=== PATIENT | female | born 1935 | race Caucasian/White ===

== ENCOUNTER 2021-01-17 15:41 | Inpatient (IN) | payer MEDICARE, MEDICAID, SELFPAY ==
[2021-01-17] VITALS (40 sets, daily range): BP systolic 86–169; BP diastolic 45–125; PULSE 64–116; RESP 13–27; TEMP 36.6–36.9; O2SAT 87–100; BMI 25.7
--- NOTE | ~2021-01-17 | CT_ITS ---
EXAMINATION: CT brain wo con DATE: 01/17/2021 16:15 INDICATION: Weakness TECHNIQUE: Computed tomography (CT) of the head was performed without intravenous contrast. Sagittal and coronal reconstructions were performed. The mA was adjusted according to patient size. Iterative reconstruction technique was employed. The dose-length product was 529.67 mGy-cm. COMPARISON: None FINDINGS: No acute intracranial hemorrhage, acute infarction or abnormal extra axial fluid collection. There is mild scattered white matter hypoattenuation consistent with chronic small vessel ischemic disease. S ymmetric prominence of the sulci consistent with mild age-appropriate diffuse cerebral volume loss. V entricles are normal and symmetric. No mass/mass effect. Changes of bilateral intraocular lens replac ement. The orbits and mastoid air cells are normal. Intracranial calcified cerebral atherosclerosis i s noted. IMPRESSION: 1. No acute intracranial process. 2. Age-related changes including mild diffuse volume loss and mild scattered white matter hypoattenua tion consistent with chronic small vessel ischemic disease. Reviewed, dictated and finalized at location A. R FINISHER IMPRESSION: 1. No acute intracranial process. 2. Age-related changes including mild diffuse volume loss and mild scattered wh ite matter hypoattenuation consistent with chronic small vessel ischemic diseas e.
--- NOTE | ~2021-01-17 | XR_ITS ---
EXAMINATION: XR chest 1V portable DATE: 01/18/2021 10:45 INDICATION: Transient alteration of awareness. TECHNIQUE: A single frontal view of the chest was obtained. COMPARISON: CT abdomen and pelvis 06/16/2014 FINDINGS: There is mild atelectasis in the lower lung zones. No pleural effusion or pneumothorax. The heart size is normal. Median sternotomy wires and mediastinal surgical clips are seen, likely from p rior coronary artery bypass grafting. IMPRESSION: 1. Mild atelectasis in the lower lung zones. Reviewed, dictated and finalized at location B. NG PILOT
--- NOTE | 2021-01-17 16:01 | ECG_ITS ---
Measurements Intervals [place] Rate: 97 P: [place]: 0 QRS: 19 QRSD: 113 T: 183 QT: 351 QTc: 446 Interpretive Statements ATRIAL FIBRILLATION INCOMPLETE RIGHT BUNDLE BRANCH BLOCK ST-T WAVE ABNORMALITY IN HIGH LATERAL LEADS- CONSIDER ISCHEMIA BASELINE ARTIFACT- AVR, AVL, AVF ABNORMAL ECG Electronically Signed On 01-17-2021 17:36:47 SUPPLY TECH by Andrew Stafford D.O.
--- NOTE | 2021-01-17 16:03 | ED.WEAKNESS ---
HPI - Weakness General Chief complaint: Weakness Stated complaint: elevated BP Time Seen by Provider: 01/17/21 16:09 Source: patient and EMS Mode of arrival: EMS Limitations: no limitations History of Present Illness HPI Narrative: Patient is an 85-year-old female brought in by EMS from dialysis due to elevated blood pressure, 250/120 . Patient was finishing up her dialysis and when they checked her blood pressure it was elevated. Patient states she also had tremors which has been going on for the past week or 2. EMS also states that the patient speech was slurred, patient denies this states that she does not have her teeth and that is why she talks like this. Patient is alert and oriented x4. Denies any speech or visual disturbance, focal weakness or numbness, unsteady gait. Patient denies any chest pain, shortness of breath, abdominal pain, nausea, vomiting, diaphoresis, fever or chills. Related Data Allergies Allergy/AdvReac Type Severity Reaction Status Date / Time MARIANO Inhibitors Allergy Unknown Unknown Verified 01/17/21 16:04 Penicillins Allergy Unknown Unknown Verified 01/17/21 16:04 Sulfa (Sulfonamide Allergy Unknown Unknown Verified 01/17/21 16:04 Antibiotics) Contrast Media Allergy Unknown Unknown Uncoded 01/17/21 16:04 Review of Systems Review of Systems: All systems reviewed & are unremarkable except as noted in HPI and below Constitutional: Constitutional: Denies body ache(s), Denies chills, Denies excessive sweating, Denies fatigue, Denies fever(s), Denies headache(s), Denies lethargy, Denies malaise, Denies weakness and Denies weight loss Eyes: Eyes: Denies blurry vision, Denies change in vision and Denies loss of vision ENT: Denies dizziness, Denies ear discharge, Denies headache(s), Denies lip swelling, Denies epistaxis, Denies nasal congestion, Denies neck pain, Denies throat swelling and Denies tongue swelling Cardiovascular: Cardiovascular: Denies chest pain, Denies chest pain at rest, Denies chest pain with activity, Denies diaphoresis, Denies rapid heart rate, Denies edema, Denies irregular heart rhythm, Denies lightheadedness, Denies palpitations, Denies dyspnea and Denies dyspnea on exertion Respiratory: Respiratory: Denies chest congestion, Denies cough, Denies hemoptysis, Denies dyspnea and Denies dyspnea on exertion Gastrointestinal: Gastrointestinal: Denies abdominal pain, Denies melena, Denies hematochezia, Denies diarrhea, Denies nausea, Denies vomiting and Denies hematemesis Musculoskeletal: Musculoskeletal: Denies abnormal gait, Denies deformity, Denies joint swelling, Denies limited range of motion, Denies neck pain and Denies numbness Neurologic: Denies Abnormal speech present, Denies abnormal gait, Denies confusion, Denies dizziness, Denies headache(s), Denies focal weakness, Denies loss of vision, Denies numbness, Denies Other visual disturbances, Denies Sensory deficit (Neuro) and Denies weakness Psychiatric: Psychiatric: Denies confusion, Denies depression, Denies auditory hallucinations, Denies homicidal ideation and Denies suicidal ideation Endocrine: Endocrine: Denies cold intolerance, Denies excessive sweating, Denies fatigue, Denies heat intolerance and Denies palpitations Hematologic/Lymphatic: Hematologic/Lymphatic: Denies easy bleeding and Denies easy bruising Allergic/Immunologic: Allergic/Immunologic: Denies lip swelling, Denies throat swelling and Denies tongue swelling PMFSH Comments Past medical history: COPD, atrial fib, hypertension Family history: Heart disease Social history: Non-smoker, no EtOH, lives in an assisted living facility Exam Const: General: cooperative, healthy appearing, comfortable, no acute distress, well developed, alert and awake; No confusion Orientation/consciousness: oriented to person, oriented to place, oriented to time, patient oriented x3 and No confusion Limitations: no limitations HENMT: Head: normal to inspection, normocephalic and atraumati
[2021-01-17 16:51] LABS: Basophils Percent Auto 0.2 % (0.2-1.2); Eosinophils Absolute Auto 0.2 K/mm3 (0-0.3); Hematocrit 32.8 % (37.0-47.0); Hemoglobin 10.2 g/dL (12.0-15.0); Immature Granulocyte Absolute 0.04 K/mm3 (0.00-0.031); Immature Granulocyte Percent A 0.4 % (0-0.5); Lymphocytes Absolute Auto 0.73 K/mm3 (0.9-3.2); Lymphocytes Percent Auto 7.7 % (18.3-44.2); Mean Corpuscular HGB Conc 31.1 g/dl (32-36); Mean Corpuscular Hemoglobin 35.5 pg (26-34); Mean Corpuscular Volume 114.3 fl (80-100); Monocytes Absolute Auto 0.9 K/mm3 (0.1-0.6); Monocytes Percent Auto 9.1 % (2.6-8.5); Neutrophils Absolute Auto 7.6 K/mm3 (1.3-6.7); Neutrophils Percent Auto 80.6 % (45.5-73.1); Platelet Count Result 94 k/mm3 (150-375); Red Blood Count 2.87 M/mm3 (4.2-5.4); White Blood Count 9.4 K/mm3 (4.5-10.0)
[2021-01-17 17:02] LABS: Anion Gap 8 mmol/L (8-16); Blood Urea Nitrogen 51 mg/dL (7-17); Carbon Dioxide 34 mmol/L (22-30); Chloride 92 mmol/L (98-107); Estimated CRCL calculation 7 ml/min; Estimated Glomerular Filt Rate 8; Glucose 132 mg/dL (65-110); Potassium 5.1 mmol/L (3.4-5.0); Sodium 134 mmol/L (137-145)
[2021-01-17] MEDS: dilTIAZem HCl INJ 25 MG/5 ML VIAL 10 MG IV PUSH (18:01)
[2021-01-17] MEDS: ALBUTEROL SULFATE NEB 2.5 MG/0.5 ML INH 10 MG INHALATION (18:35)
--- NOTE | 2021-01-17 19:55 | PM.IMHP ---
H&P: HPI History of Present Illness Date/Time: 01/17/21 19:55 this is a 85-year-old female patient who is from [facility] re[facility]. The patient has end-stage renal disease and typically sees Dr. Bright at [place]. The patient was receiving dialysis today when they noted that her blood pressure was high it was stated to be 250/120. 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 Initially the ER physician felt that the patient had slurred speech. The daughter was with the patient stated this is her normal speech if she is edentulous. Patient is alert orientated x4 she is answering questions but she is very hard of hearing. She has no focal weakness or facial droop. No complaints of any chest pain or shortness breath at this time. Troponin is 0.85. Patient's EKG is read as atrial fibrillation incomplete right bundle branch block heart rate in the 90s. H&H is 10.2 and 32.8. Potassium 5.1. Sodium 134. Creatinine 5.1 and a GFR 8. The patient was given albuterol treatment for the potassium of 5.1. Patient's blood pressure was noted to be 137/95 with a repeat of 105/78 followed by 169/125. Patient's blood pressures are up and down. Patient was given Cardizem for heart rates of 103 to 116. Patient's heart rates now in the 70s and 80s. Head CT was read as no acute intracranial process. Age-related changes including mild diffuse volume loss and mild scattered white matter hypoattenuation consistent with chronic small vessel ischemic disease. Patient is being admitted to observation status on the date of service of 01/17/2021. Chief Complaint: High blood pressure and elevated troponin Review of Systems Review of Systems: All systems reviewed & are unremarkable except as noted in HPI and below Constitutional: Constitutional: Reports as per HPI and Reports no additional constitutional complaints Eyes: Eyes: Reports as per HPI and Reports no additional eye complaints ENT: Reports system reviewed and no additional complaints, except as documented and Reports Normal hearing present Cardiovascular: Cardiovascular: Reports no additional cardiovascular complaints Respiratory: Respiratory: Reports no additional respiratory complaints and Reports no additional respiratory complaints Gastrointestinal: Gastrointestinal: Reports as per HPI and Reports no additional gastrointestinal complaints Musculoskeletal: Musculoskeletal: Reports no additional musculoskeletal complaints Integumentary/Breasts: Skin/Breast: Reports system reviewed and no additional complaints, except as docu and Reports as per HPI Neurologic: Reports system reviewed and no additional complaints, except as documented, Reports as per HPI and Reports Normal hearing present Psychiatric: Psychiatric: Reports no additional psychiatric complaints and Reports as per HPI Endocrine: Endocrine: Reports no additional endocrine complaints Hematologic/Lymphatic: Hematologic/Lymphatic: Reports no additional hematologic/lymphatic complaints Allergic/Immunologic: Allergic/Immunologic: Reports no additional allergic/immunologic complaints [facility] Past Medical History Medical History (Updated 01/17/21 @ 20:27 by Cristiana Delacruz NP) Anemia of chronic disease Atrial fibrillation CAD (coronary artery disease) COPD (chronic obstructive pulmonary disease) History of kidney stones Hypothyroidism Surgical History Surgical History (Updated 01/17/21 @ 20:09 by Cristiana Delacruz NP) H/O four vessel coronary artery bypass graft H/O lithotripsy H/O: hysterectomy Family History Family History (Updated 01/17/21 @ 20:11 by Cristiana Delacruz NP) Mother Hypertension Diabetes mellitus Sibling Heart disease Sister Diabetes mellitus 1 brother and 2 sisters Hypertension 3 brothers and 2 sisters Father Hypertension Social History Social History (Updated 01/17/21 @ 20:12 by Cristiana Delacruz NP) Soci
[2021-01-17 21:19] LABS: Troponin I 0.768 ng/mL (0.000-0.034)
--- NOTE | 2021-01-17 21:59 | PC.NURSE ---
Bed alarm placed under patient.
--- NOTE | 2021-01-17 22:03 | PC.NURSE ---
DEREJE faxed to IMU. Family updated on room assignment. Pt reports she usually does dialysis 'every other day' and got 1/2 a treatment today (Monday) due to the upcoming holiday week schedule, when [facility] will be closed. Pt has access to Left upper arm. +thrill. +bruit. dressing in place without active bleeding noted. pt speech is slurred, which family reports is normal for pt.
--- NOTE | 2021-01-17 23:02 | ADMGEN ---
This patient, uLiza Chapman, was admitted to IMU Room 206-02. Patient/family oriented to hospital policies and general routines including ID bracelet, bed and alarms, visiting hours, pain management, procedures, bathroom and other care routines, personal items, smoking policy, room service/diet, and visiting hours. Information on how to activate the Rapid Response Team has been discussed. Patient/Family are encouraged to report perceived risks to care and to ask questions if they do not understand what they are told or what they should do.
[2021-01-17 23:30] LABS: Troponin I 0.701 ng/mL (0.000-0.034)
[2021-01-18] VITALS (24 sets, daily range): BP systolic 74–134; BP diastolic 35–61; PULSE 58–104; RESP 18–22; TEMP 36–36.9; O2SAT 97–100
[2021-01-18 05:05] LABS: Alanine Aminotransferase 15 U/L (4-35); Albumin Level 3.8 g/dL (3.5-5.1); Alkaline Phosphatase 65 U/L (38-126); Anion Gap 6 mmol/L (8-16); Aspartate Amino Transferase 22 U/L (14-36); Bilirubin,Total 0.7 mg/dL (0.2-1.3); Blood Urea Nitrogen 59 mg/dL (7-17); Calcium 9.7 mg/dL (8.4-10.2); Carbon Dioxide 31 mmol/L (22-30); Chloride 92 mmol/L (98-107); Estimated CRCL calculation 6 ml/min; Estimated Glomerular Filt Rate 7; Glucose 86 mg/dL (65-110); Lactate Dehydrogenase 328 U/L (313-618); Magnesium 2.2 mg/dL (1.6-2.3); Phosphorus 4.7 mg/dL (2.5-4.5); Potassium 5.9 mmol/L (3.4-5.0); Sodium 129 mmol/L (137-145)
[2021-01-18] MEDS: metOLazone 5 MG TABLET 10 MG PO (08:32)
[2021-01-18] MEDS: CLOPIDOGREL BISULFATE 75 MG TABLET PO (08:32)
[2021-01-18] MEDS: busPIRone HCL 10 MG TABLET PO (08:32)
[2021-01-18] MEDS: carvediloL 25 MG TABLET PO ×2 (08:32→18:32)
[2021-01-18] MEDS: LORATADINE 10 MG TABLET PO (08:32)
[2021-01-18] MEDS: GABAPENTIN 300 MG CAPSULE PO ×3 (08:33→18:32)
[2021-01-18] MEDS: CALCIUM ACETATE 667 MG TABLET 2001 MG PO ×3 (08:51→18:31)
--- NOTE | 2021-01-18 09:50 | PM.IMPN ---
Progress Note: A&P Assessment and Plan (1) Elevated troponin: Code(s): R77.8 - Other specified abnormalities of plasma proteins Status: Acute Assessment and Plan: Appreciate cardiology note Patient in no obvious distress or chest pain. Patient is a dialysis patient could be related to that. The patient has no complaints of any chest pain. Continue to trend troponins. Patient has no complaints at this time. She does have a history of having coronary artery disease. The patient is a DNR. EKG was read as atrial fibrillation incomplete right bundle branch block ST T-wave abnormality with high lateral leads consider ischemia. (2) COPD (chronic obstructive pulmonary disease): Code(s): J44.9 - Chronic obstructive pulmonary disease, unspecified Status: Chronic Assessment and Plan: Continue with home medications. No respiratory distress (3) Atrial fibrillation: Code(s): I48.91 - Unspecified atrial fibrillation Status: Chronic Assessment and Plan: The patient was given a dose of Cardizem in the emergency room. Her heart rate is in the 70s now. Currently well controlled (4) CAD (coronary artery disease): Code(s): I25.10 - Atherosclerotic heart disease of [place] coronary artery without angina pectoris Status: Chronic Assessment and Plan: History of 4 vessel CABG. Continue with home medications. Denies any chest pain (5) Hypothyroidism: Code(s): E03.9 - Hypothyroidism, unspecified Status: Chronic Assessment and Plan: Check thyroid level and continue with thyroid medicine. Follow-up in outpatient setting (6) Anemia of chronic disease: Code(s): D63.8 - Anemia in other chronic diseases classified elsewhere Status: Chronic Assessment and Plan: Patient has end-stage renal disease. Recheck in the a.m.. Procrit in the outpatient setting by nephrology service (7) Acute hyperkalemia: Code(s): E87.5 - Hyperkalemia Status: Acute Assessment and Plan: Potassium is 5.9 Nephrology consulted Potassium was only 5.1 and she received dialysis today. Patient was given a nebulizer treatment in the emergency room. Repeat labs in the a.m.. (8) End stage renal disease on dialysis: Code(s): N18.6 - End stage renal disease; Z99.2 - Dependence on renal dialysis Status: Acute Assessment and Plan: Continue dialysis Patient said that she sees Dr. Logan. I did consult Nephrology here. patient had dialysis today. Continue to monitor electrolytes. Subjective Date/time seen: 01/18/21 09:50 I'm fine Review of Systems Review of Systems: All systems reviewed & are unremarkable except as noted in HPI and below Constitutional: Constitutional: Reports as per HPI and Reports no additional constitutional complaints Eyes: Eyes: Reports as per HPI and Reports no additional eye complaints ENT: Reports system reviewed and no additional complaints, except as documented and Reports Normal hearing present Cardiovascular: Cardiovascular: Reports no additional cardiovascular complaints Respiratory: Respiratory: Reports no additional respiratory complaints and Reports no additional respiratory complaints Gastrointestinal: Gastrointestinal: Reports as per HPI and Reports no additional gastrointestinal complaints Musculoskeletal: Musculoskeletal: Reports no additional musculoskeletal complaints Integumentary/Breasts: Skin/Breast: Reports system reviewed and no additional complaints, except as docu and Reports as per HPI Neurologic: Reports system reviewed and no additional complaints, except as documented, Reports as per HPI and Reports Normal hearing present Psychiatric: Psychiatric: Reports no additional psychiatric complaints and Reports as per HPI Endocrine: Endocrine: Reports no additional endocrine complaints Hematologic/Lymphatic: Hematologic/Lymphatic: Reports no additional hematologic/lymphatic complaint
[2021-01-18] MEDS: oxyCODONE HCL (*CRX) 5 MG TAB IR 10 MG PO (13:03)
--- NOTE | 2021-01-18 15:34 | PM.PNNEP ---
Progress Note: A&P Assessment and Plan (1) End stage renal disease: Code(s): N18.6 - End stage renal disease Status: Chronic Assessment and Plan: HD today given hyperkalemia and only partial treatment yesterday plan HD tomorrow or day after depending on HD nursing staffing issues/holiday schedule follow electrolytes, volume status, and clearance FULL CONSULT to follow. Subjective Date/time seen: 01/18/21 15:34 Tolerating hemodialysis treatment at the time of my visit (seen on HD at 3:15PM); a bit confused(?) currently but does not appear in any acute distress; no events overnight. Exam Narrative: General: WD/WN female in NAD; hard of hearing Heart: normal S1 and S2; IRRR, no rub Lungs: clear to auscultation Abdomen: soft, nontender, nondistended, positive bowel sounds Extremities: no cyanosis or clubbing; no edema Skin: warm and dry Objective Data Vital Signs Vital Signs: Vital Signs Temp Pulse Resp BP Pulse Ox 01/18/21 15:10 36.3 C L 82 20 111/39 L 01/18/21 14:00 68 01/18/21 12:00 36.9 C 77 22 H 106/42 L 99 01/18/21 10:00 70 01/18/21 08:00 36.0 C L 66 18 110/55 L 99 01/18/21 06:00 66 01/18/21 04:00 67 18 99 01/18/21 03:26 36.0 C L 67 18 134/61 99 01/18/21 02:00 78 01/17/21 23:50 70 18 98 01/17/21 23:00 36.9 C 64 18 100/45 L 98 01/17/21 22:37 18 97 01/17/21 21:45 86 18 01/17/21 21:31 82 16 01/17/21 21:30 81 20 92 01/17/21 21:26 85 19 102/78 96 01/17/21 21:22 74 15 86/48 L 01/17/21 21:20 81 25 H 01/17/21 21:00 83 21 H 01/17/21 20:45 77 14 01/17/21 20:32 89 20 104/77 01/17/21 20:30 85 24 H 01/17/21 20:24 79 15 11/21/21 20:18 104 H 20 103/76 97 01/17/21 20:01 83 14 103/76 01/17/21 20:00 77 14 01/17/21 19:53 81 18 01/17/21 19:47 72 18 01/17/21 19:38 77 17 01/17/21 19:15 73 14 01/17/21 19:04 70 22 H 100 01/17/21 19:03 84 27 H 94/58 L 95 01/17/21 19:01 82 24 H 01/17/21 18:47 78 14 95 01/17/21 18:39 78 24 H 01/17/21 18:30 75 15 93 01/17/21 18:15 78 18 01/17/21 18:05 81 110/78 98 01/17/21 18:02 103 H 18 110/78 01/17/21 18:00 88 13 01/17/21 17:45 92 19 01/17/21 17:43 103 H 18 95/61 L 87 L 01/17/21 17:42 116 H 20 103/81 95 01/17/21 17:37 94 17 131/69 99 01/17/21 17:33 108 H 16 99 01/17/21 17:28 108 H 18 169/125 H 98 01/17/21 16:30 104 H 20 105/78 98 01/17/21 15:55 110 H 01/17/21 15:44 36.6 C 107 H 18 137/95 H 98 Intake/Output Intake/Output: Intake & Output 01/15/21 01/16/21 01/17/21 01/18/21 23:59 23:59 23:59 23:59 Intake Total 365 Balance 365 Meds/Results Medications: Active Medications Generic Name Dose Route Start Last Admin Trade Name Freq PRN Reason Stop Dose Admin Atorvastatin Calcium 40 mg 01/18/21 00:25 01/18/21 02:27 Atorvastatin 40 Mg Tablet PO Not Given HS MONICA Buspirone HCl 10 mg 01/18/21 09:00 01/18/21 08:32 Buspirone Hcl 10 Mg Tablet PO 10 mg DAILY MONICA Administration Calcium Acetate 2,001 mg 01/18/21 08:00 01/18/21 13:01 Calcium Acetate 667 Mg Tablet PO 2,001 mg TIDWM MONICA Administration Carvedilol 25 mg 01/18/21 08:00 01/18/21 08:32 Carvedilol 25 Mg Tablet PO 25 mg BIDWM MONICA Administration Clopidogrel Bisulfate 75 mg 01/18/21 09:00 01/18/21 08:32 Clopidogrel Bisulfate 75 Mg Tablet PO 75 mg DAILY MONICA Administration Fentanyl 50 mcg 01/20/21 09:00 Fentanyl (*Crx) 50 Mcg Patch TRANSDERM Q72H MONICA Gabapentin 300 mg 01/18/21 09:00 01/18/21 13:01 Gabapentin 300 Mg Capsule PO 300 mg TID MONICA Administration Acetaminophen 1,000 mg in 100 mls @ 400 mls/hr 01/17/21 19:21 Ofirmev 1,000 Mg Ivpb IVPB 01/18/21 19:20 Q6H PRN Mild Pain (1-3) or Fever Albumin Human 50 mls @ 9
[2021-01-18] MEDS: ATORVASTATIN 40 MG TABLET PO (20:33)
[2021-01-19] VITALS (30 sets, daily range): BP systolic 90–131; BP diastolic 26–58; PULSE 65–90; RESP 16–22; TEMP 35.3–36.9; O2SAT 94–100
[2021-01-19 08:47] LABS: Basophils Percent Auto 0.6 % (0.2-1.2); Eosinophils Absolute Auto 0.2 K/mm3 (0-0.3); Eosinophils Percent Auto 3.1 % (0-4.4); Hematocrit 30.3 % (37.0-47.0); Hemoglobin 9.5 g/dL (12.0-15.0); Immature Granulocyte Absolute 0.03 K/mm3 (0.00-0.031); Immature Granulocyte Percent A 0.4 % (0-0.5); Lymphocytes Absolute Auto 0.89 K/mm3 (0.9-3.2); Lymphocytes Percent Auto 12.7 % (18.3-44.2); Mean Corpuscular HGB Conc 31.4 g/dl (32-36); Mean Corpuscular Hemoglobin 36.5 pg (26-34); Mean Corpuscular Volume 116.5 fl (80-100); Mean Platelet Volume 10.9 fl (7.4-10.4); Monocytes Absolute Auto 0.8 K/mm3 (0.1-0.6); Monocytes Percent Auto 11.4 % (2.6-8.5); Neutrophils Percent Auto 71.8 % (45.5-73.1); Platelet Count Result 91 k/mm3 (150-375)
[2021-01-19 09:18] LABS: Albumin Level 3.9 g/dL (3.5-5.1); Anion Gap 9 mmol/L (8-16); Blood Urea Nitrogen 36 mg/dL (7-17); Calcium 10.6 mg/dL (8.4-10.2); Carbon Dioxide 27 mmol/L (22-30); Chloride 96 mmol/L (98-107); Estimated CRCL calculation 8 ml/min; Estimated Glomerular Filt Rate 10; Glucose 94 mg/dL (65-110); Phosphorus 4.1 mg/dL (2.5-4.5); Sodium 132 mmol/L (137-145)
[2021-01-19] MEDS: CALCIUM ACETATE 667 MG TABLET 2001 MG PO ×3 (09:51→18:55)
[2021-01-19] MEDS: LOSARTAN POTASSIUM 25 MG TABLET PO (09:51)
[2021-01-19] MEDS: GABAPENTIN 300 MG CAPSULE PO ×3 (09:51→18:55)
[2021-01-19] MEDS: LORATADINE 10 MG TABLET PO (09:52)
[2021-01-19] MEDS: carvediloL 25 MG TABLET PO ×2 (09:52→18:55)
[2021-01-19] MEDS: metOLazone 5 MG TABLET 10 MG PO (09:52)
[2021-01-19] MEDS: busPIRone HCL 10 MG TABLET PO (09:52)
[2021-01-19] MEDS: CLOPIDOGREL BISULFATE 75 MG TABLET PO (09:52)
[2021-01-19] MEDS: HEPARIN SODIUM 5,000 UNITS/ML VIAL 5000 UNITS SUB-Q ×2 (09:53→20:28)
--- NOTE | 2021-01-19 10:16 | ECHO_ITS ---
Patient Info Name: Luiza Chapman Age: 85 years : 1935 Gender: Female Ht: 64 in Wt: 149 lbs BSA: 1.76 m2 HR: 73 bpm BP: 121 / 45 mmHg Heart Rhythm: Atrial Fibrillation Technical Quality: Good Exam Date: 01/19/2021 1:25 PM Exam Location: [facility] Patient Status: Inpatient Admit Date: 01/18/2021 Staff Ordering Physician: Onel Day MD [employer] Manager: Ariana Webber RDCS Attending Provider: Ivanna Pearson PA-C Referring Physician: Barb YATES; Exam Type: CA echo doppler color flow Study Info Indications - ELEVATED TROPONIN - AFIB Complete two-dimensional, color flow and Doppler transthoracic echocardiogram is performed. Summary 1. Complete two-dimensional, color flow and Doppler transthoracic echocardiogram is performed. 2. Right ventricular systolic function is mild to moderately reduced. 3. Left ventricular chamber dimension is normal. 4. Left ventricular systolic function is normal, estimated at 65-70%. 5. There is moderately increased left ventricular wall thickness. 6. Left ventricular septal wall motion is abnormal with septal motion related to bundle branch block. 7. There is moderate to severe tricuspid valve regurgitation. 8. Moderate pulmonary hypertension, estimated pulmonary arterial systolic pressure is 47 mmHg. Left Ventricle Left ventricular chamber dimension is normal. Left ventricular systolic function is normal, estimated at 65-70%. There is moderately increased left ventricular wall thickness. Left ventricular septal wall motion is abnormal with septal motion related to bundle branch block. The left ventricular diastolic function is indeterminate. Right Ventricle Right ventricular systolic function is mild to moderately reduced. Right ventricular chamber dimension is mildly enlarged. Left Atria Left atrial chamber dimension is mildly enlarged. Right Atria Right atrial chamber dimension is mildly enlarged. Aortic Valve The aortic valve is trileaflet. There is no aortic valve stenosis. There is mild aortic valve regurgitation. There is mild aortic valve calcification. Pulmonic Valve The pulmonic valve is not well visualized. There is trace pulmonic regurgitation. Mitral Valve The mitral valve has thickened leaflets. There is mild mitral valve regurgitation. The mitral valve annulus is mildly calcified. Tricuspid Valve The tricuspid valve leaflets are normal. There is moderate to severe tricuspid valve regurgitation. Moderate pulmonary hypertension, estimated pulmonary arterial systolic pressure is 47 mmHg. Pericardium/Pleural The pericardium appears normal. There is no pericardial effusion. Inferior Vena Cava Normal inferior vena cava with >50% collapse upon inspiration consistent with normal right atrial pressure, 5 mmHg. Aorta The aortic root size at the sinus of Valsalva is normal. There is moderate aortic atherosclerosis. Left Ventricular Outflow Tract Name Value Normal LVOT 2D LVOT Diameter 1.9 cm LVOT Doppler LVOT Peak Gradient 5 mmHg LVOT Mean Gradient 3 mmHg
--- NOTE | 2021-01-19 10:25 | PM.CNNEP ---
Assessment and Plan Assessment and plan (1) End stage renal disease: Code(s): N18.6 - End stage renal disease Status: Chronic Assessment and Plan: HD yesterday (but treatment aborted an hour early due to needle dislodgement) plan HD again today follow electrolytes, volume status, and clearance (2) Acute hyperkalemia: Code(s): E87.5 - Hyperkalemia Status: Acute Assessment and Plan: corrected with dialysis yesterday apparently, she has missed some dialysis treatments the week before due to issues with transportation from her nursing facility follow repeat levels (3) Hypertension: Code(s): I10 - Essential (primary) hypertension Status: Chronic Assessment and Plan: apparently quite elevated prior to admission doing better at this time follow trend of hemodynamics (4) Elevated troponin: Code(s): R77.8 - Other specified abnormalities of plasma proteins Status: Acute Assessment and Plan: as noted on admission no complaints of chest pain voiced probably secondary to ESRD status (5) Atrial fibrillation: Code(s): I48.91 - Unspecified atrial fibrillation Status: Chronic Assessment and Plan: continue rate control strategy need anticoagulation? (6) Anemia of chronic disease: Code(s): D63.8 - Anemia in other chronic diseases classified elsewhere Status: Chronic Assessment and Plan: reasonable control at this time Epogen with HD follow trend of H/H Will continue to follow. History of Present Illness Reason for Consult Consult date: 01/19/21 Reason for consult: end stage renal disease Chief Complaint Chief complaint: Hyperkalemia History of Present Illness Narrative: The patient is an 85-year-old female with a past medical history as outlined below who presented to [facility] Emergency room from her dialysis center due to issues related to severe hypertension and reportedly altered mental status. The patient was receiving dialysis yesterday when the dialysis nurse nose nurses noted that her blood pressure was reportedly in the 250 systolic range. Along with the elevated blood pressure readings, her mentation seemed to be somewhat off than her baseline for all these reasons, her dialysis treatment was ended early and she was sent to [facility] Emergency room for further evaluation. Workup and evaluation emergency room demonstrated the patient to be hemodynamically stable and actually her blood pressure was significantly improved by the time of her arrival. There was some concern for possible CVA as the patient had slurred speech but the patient's daughter informed the ER staff that her speech pattern is more reflective of the fact that she does not have teeth. She was alert and oriented x4 and able to answer questions appropriately but she is significantly hard of hearing. No other focal deficits were noted and she had no other complaints with regard to chest pain shortness of breath nausea vomiting or diarrhea. Routine blood test demonstrated labs consistent with a known history of end-stage renal disease with a mildly elevated potassium of 5.1 and her CBC was unremarkable with a stable H&H. The patient's blood pressure did fluctuate while she was in the ER as did her heart rate assess the taping the use of medications to control these issues. A CT scan of her head demonstrated no acute intracranial process but given the constellation of symptoms that led to her presentation as well as her complex medical history, it was decided to admit the patient for further evaluation and therapy. Since her admission, she received dialysis yesterday more so because of her critical electrolyte abnormalities (specifically, her hyperkalemia) as well as the fact that she only received a partial dialysis treatment on the day of admission. Renal consultation was requested due to her end-stage allan
[2021-01-19] MEDS: ACETAMINOPHEN 325 MG TABLET 650 MG PO ×2 (11:05→18:56)
[2021-01-19 11:37] LABS: Iron 67 ug/dL (37-170)
--- NOTE | 2021-01-19 11:44 | PM.CNCAR ---
Assessment and Plan Assessment and plan (1) Elevated troponin: Code(s): R77.8 - Other specified abnormalities of plasma proteins Status: Acute Assessment and Plan: Indeterminate troponin elevation fairly flat with slight downward trend setting of reported hypertensive urgency systolic up to BP 250 mm Hg during hemodialysis resulting in supply demand mismatch in the setting of end-stage renal disease hemodialysis, atrial fibrillation, underlying CAD. No symptoms suggestive acute coronary syndrome. Troponin elevation most likely type 2 infarct and not related to plaque rupture. Given patient's advanced age high risk plan for conservative medical management particular patient is not interested in pursuing invasive testing such as angiography. 2D echocardiogram to assess LV function, wall motion abnormality, pulmonary pressures and valve pathology. Further recommendation to follow after review of echocardiogram and patient's clinical response to therapy. (2) Atrial fibrillation: Code(s): I48.91 - Unspecified atrial fibrillation Status: Chronic Assessment and Plan: Patient reports known chronic history of atrial fibrillation. She is not on systemic anticoagulation due to history of frequent falls, reported bleeding. She remains on clopidogrel. Heart rate reasonably controlled at this time, continue carvedilol 25 mg twice daily. Patient elevated risk for embolic stroke as she is not on systemic anticoagulation with multiple risk factors CHADS2 Vasc score at least 5. (3) CAD (coronary artery disease): Code(s): I25.10 - Atherosclerotic heart disease of [place] coronary artery without angina pectoris Status: Chronic Assessment and Plan: Prior history of bypass followed by Dr. Logan [facility] as an outpatient. Please request prior records for review. Continue clopidogrel, statin therapy. (4) Hypertensive urgency: Code(s): I16.0 - Hypertensive urgency Status: Acute Assessment and Plan: BP improved, somewhat labile and relatively hypotensive over the past 24 hours. Caution to avoid symptomatic hypotension. Patient is high fall risk. Hold losartan for now. (5) COPD (chronic obstructive pulmonary disease): Code(s): J44.9 - Chronic obstructive pulmonary disease, unspecified Status: Chronic Assessment and Plan: Continue oxygen supplementation, bronchodilator therapy as clinically appropriate. Defer to primary service in this regard. (6) Anemia of chronic disease: Code(s): D63.8 - Anemia in other chronic diseases classified elsewhere Status: Chronic Assessment and Plan: Stable chronic anemia and thrombocytopenia. Monitor very closely on clopidogrel. Increased risk of bleeding. (7) Acute hyperkalemia: Code(s): E87.5 - Hyperkalemia Status: Acute Assessment and Plan: Resolved. Defer to primary service and Nephrology. (8) End stage renal disease on dialysis: Code(s): N18.6 - End stage renal disease; Z99.2 - Dependence on renal dialysis Status: Acute Assessment and Plan: Hemodialysis per Nephrology. She remains on metolazone 10 mg daily although this may need to be held if hypotension persists. History of Present Illness History of Present Illness Consult date/time: Date of service: 01/19/21 11:44 Cardiology consultation at the request of Ivanna Pearson PA-C for opinion regarding elevated troponin. Requesting physician: Ivanna Pearson PA-C Consult reason: Other (elevated troponin) Reason For Visit: Hyperkalemia Narrative: Patient is a pleasant 85-year-old female who has a resident of [facility] with past medical history significant for coronary disease prior bypass surgery remotely followed by Dr. Logan with [facility] vascular, end-stage renal disease on hemodialysis, hypertension, dyslipidemia, chronic atrial fibrillation not on anticoagulation secondary to fall
[2021-01-19 11:48] LABS: Percent Iron Saturation 32 % (20-50)
[2021-01-19 12:26] LABS: Folic Acid 7.4 ng/mL (2.76->20)
--- NOTE | 2021-01-19 14:58 | PCPTNOTE ---
Attempted to see patient for PT evaluation, unable to be seen going to dialysis.
--- NOTE | 2021-01-19 15:22 | PM.IMPN ---
Progress Note: A&P Assessment and Plan (1) Hypertensive urgency: Code(s): I16.0 - Hypertensive urgency Status: Acute Assessment and Plan: The patient is an 85-year-old woman who was at [facility], with a history of end-stage renal disease on dialysis, who presents emergency room with uncontrolled blood pressure while at dialysis. The patient states sometimes her blood pressure becomes out of control while doing dialysis. Prior to arrival was as high as 250/120 and she was brought to the emergency room for further evaluation and workup. Initial vitals showed elevated blood pressure 137/95, tachycardic heart rate 107 beats per minute, normal oxygenation on 2 L via nasal cannula which is her baseline, afebrile. Labs on arrival showed normal white blood cell count, macrocytic anemia with a hemoglobin at 10.2, hematocrit 32%. Slight hyponatremia at 134, hyperkalemia at 5.1, elevated creatinine at 5.1, BUN 51 but she is on dialysis. Troponins were elevated at 0.85, 0.768, and 0.701. TSH normal. Patient was admitted into the hospital for further monitoring of her blood pressure, nephrology consult for dialysis, and cardiology consultation for troponin and blood pressure control. While here the patient's blood pressure seems to be running normal-slightly hypotensive. I have not seen any more hypertensive episodes during her admission. She otherwise reports feeling well. Cardiology recommends holding losartan for now given low blood pressures. Nephrology evaluated the patient and ordered for dialysis to be given 01/18/2021 since she only had partial treatment prior to arrival the day before. She also is going to have dialysis again this evening. Continue monitoring renal function panel daily. Echocardiogram and pending at this time Continue monitoring blood pressure while hospitalized and during dialysis. Appreciate Nephrology and cardiology's input. (2) Elevated troponin: Code(s): R77.8 - Other specified abnormalities of plasma proteins Status: Acute Assessment and Plan: Cardiology evaluated the patient who believes that her elevated troponins are secondary to a tight to infarct which could be in the setting of hypertensive urgency systolic up to BP 250 mm Hg during hemodialysis resulting in supply demand mismatch in the setting of end-stage renal disease hemodialysis, atrial fibrillation, underlying CAD. Cardiology discussed with the patient who does not want further invasive testing done such as a cardiac catheterization (3) End stage renal disease on dialysis: Code(s): N18.6 - End stage renal disease; Z99.2 - Dependence on renal dialysis Status: Acute Assessment and Plan: Continue dialysis. I did consult Nephrology for their input. Patient had dialysis yesterday and again today. Continue to monitor electrolytes. (4) COPD (chronic obstructive pulmonary disease): Code(s): J44.9 - Chronic obstructive pulmonary disease, unspecified Status: Chronic Assessment and Plan: Continue with home medications. No respiratory distress (5) Atrial fibrillation: Code(s): I48.91 - Unspecified atrial fibrillation Status: Chronic Assessment and Plan: The patient was given a dose of Cardizem in the emergency room. Patient is not on any anticoagulation due to frequent falls and bleeding risk. Patient is on clopidogrel given CABG surgery in past Currently well controlled (6) CAD (coronary artery disease): Code(s): I25.10 - Atherosclerotic heart disease of [place] coronary artery without angina pectoris Status: Chronic Assessment and Plan: History of 4 vessel CABG. Continue with home medications. D
[2021-01-19] MEDS: ATORVASTATIN 40 MG TABLET PO (20:28)
[2021-01-20] VITALS (10 sets, daily range): BP systolic 122–130; BP diastolic 44–70; PULSE 65–78; RESP 12–18; TEMP 36.2–36.6; O2SAT 95–100
[2021-01-20 05:33] LABS: Hematocrit 26.8 % (37.0-47.0); Hemoglobin 8.4 g/dL (12.0-15.0); Mean Corpuscular HGB Conc 31.3 g/dl (32-36); Mean Corpuscular Hemoglobin 36.7 pg (26-34); Mean Platelet Volume 10.4 fl (7.4-10.4); Platelet Count Result 70 k/mm3 (150-375); Red Blood Count 2.29 M/mm3 (4.2-5.4); Red Cell Distribution Width 13.8 % (11.5-14.5); White Blood Count 5.5 K/mm3 (4.5-10.0)
[2021-01-20 06:02] LABS: Albumin Level 3.2 g/dL (3.5-5.1); Anion Gap 4 mmol/L (8-16); Blood Urea Nitrogen 17 mg/dL (7-17); Calcium 9.7 mg/dL (8.4-10.2); Carbon Dioxide 32 mmol/L (22-30); Chloride 100 mmol/L (98-107); Estimated CRCL calculation 12 ml/min; Estimated Glomerular Filt Rate 16; Glucose 87 mg/dL (65-110); Phosphorus 2.8 mg/dL (2.5-4.5); Sodium 136 mmol/L (137-145)
[2021-01-20] MEDS: CLOPIDOGREL BISULFATE 75 MG TABLET PO (08:56)
[2021-01-20] MEDS: GABAPENTIN 300 MG CAPSULE PO ×2 (08:56→12:41)
[2021-01-20] MEDS: busPIRone HCL 10 MG TABLET PO (08:56)
[2021-01-20] MEDS: CALCIUM ACETATE 667 MG TABLET 2001 MG PO ×2 (08:56→12:41)
[2021-01-20] MEDS: metOLazone 5 MG TABLET 10 MG PO (08:56)
[2021-01-20] MEDS: LORATADINE 10 MG TABLET PO (08:56)
[2021-01-20] MEDS: carvediloL 25 MG TABLET PO (08:56)
[2021-01-20] MEDS: HEPARIN SODIUM 5,000 UNITS/ML VIAL 5000 UNITS SUB-Q (08:57)
[2021-01-20] MEDS: SENNA/DOCUSATE SODIUM TABLET 1 TAB PO (08:57)
[2021-01-20] MEDS: CYANOCOBALAMIN INJ 1,000 MCG/ML VIAL 1000 MCG IM (09:03)
[2021-01-20] MEDS: fentaNYL (*CRX) 50 MCG PATCH TRANSDERM (09:14)
--- NOTE | 2021-01-20 10:03 | PM.PNNEP ---
Progress Note: A&P Assessment and Plan (1) End stage renal disease: Code(s): N18.6 - End stage renal disease Status: Chronic Assessment and Plan: HD yesterday and plan next treatment on Monday follow electrolytes, volume status, and clearance (2) Acute hyperkalemia: Code(s): E87.5 - Hyperkalemia Status: Acute Assessment and Plan: corrected with dialysis apparently, she has missed some dialysis treatments the week before due to issues with transportation from her nursing facility follow repeat levels (3) Hypertension: Code(s): I10 - Essential (primary) hypertension Status: Chronic Assessment and Plan: apparently quite elevated prior to admission doing better at this time follow trend of hemodynamics (4) Elevated troponin: Code(s): R77.8 - Other specified abnormalities of plasma proteins Status: Acute Assessment and Plan: as noted on admission no complaints of chest pain voiced probably secondary to ESRD status (5) Atrial fibrillation: Code(s): I48.91 - Unspecified atrial fibrillation Status: Chronic Assessment and Plan: continue rate control strategy need anticoagulation? (6) Anemia of chronic disease: Code(s): D63.8 - Anemia in other chronic diseases classified elsewhere Status: Chronic Assessment and Plan: reasonable control at this time Epogen with HD follow trend of H/H Will continue to follow. Subjective Date/time seen: 01/20/21 10:03 Tolerated dialysis yesterday without any issue or problems; mentation and blood pressure seem relatively stable at this time; no issues/events overnight or earlier this morning. Exam Narrative: General: WD/WN female in NAD Heart: normal S1 and S2; no rub Lungs: clear to auscultation Abdomen: soft, nontender, nondistended, positive bowel sounds Extremities: no cyanosis or clubbing; no edema Skin: warm and dry Objective Data Vital Signs Vital Signs: Vital Signs Temp Pulse Resp BP Pulse Ox 01/20/21 08:56 73 01/20/21 08:00 36.6 C 73 18 130/44 L 100 01/20/21 06:00 78 01/20/21 04:00 36.2 C L 75 16 122/49 L 98 01/20/21 02:00 65 01/20/21 00:00 69 18 97 01/19/21 23:04 36.4 C L 65 18 131/49 L 97 01/19/21 22:00 74 01/19/21 20:00 36.4 C L 72 20 129/49 L 99 01/19/21 18:58 36.9 C 90 16 119/58 L 100 01/19/21 18:55 90 01/19/21 18:30 36.2 C L 88 16 106/38 L 01/19/21 18:00 79 01/19/21 17:45 79 113/26 L 01/19/21 17:30 69 103/30 L 01/19/21 17:15 82 101/38 L 01/19/21 17:00 71 112/31 L 01/19/21 16:45 83 111/37 L 01/19/21 16:30 71 90/47 L 01/19/21 16:15 73 119/40 L 01/19/21 16:00 74 98/49 L 98 01/19/21 15:45 72 104/26 L 01/19/21 15:30 75 102/45 L 01/19/21 15:18 76 102/47 L 01/19/21 15:05 36.6 C 66 16 92/38 L 01/19/21 14:00 69 01/19/21 12:32 36.7 C 71 22 H 103/44 L 100 01/19/21 12:00 72 100 Intake/Output Intake/Output: Intake & Output 01/17/21 01/18/21 01/19/21 01/20/21 23:59 23:59 23:59 23:59 Intake Total 945 1280 240 Output Total 289 0 0 Balance 656 1280 240 Meds/Results Medications: Active Medications Generic Name Dose Route Start Last Admin Trade Name Freq PRN Reason Stop Dose Admin Acetaminophen 650 mg 01/19/21 10:28 01/19/21 18:56 Acetaminophen 325 Mg Tablet PO 650 mg Q4H PRN Administration Headache, pain 1-3, fever Atorvastatin Calcium 40 mg 01/18/21 00:25 01/19/21 20:28 Atorvastatin 40 Mg Tablet PO 40 mg HS MONICA Administration Buspirone HCl 10 mg 01/18/21 09:00 01/20/21 08:56 Buspirone Hcl 10 Mg Tablet PO 10 mg DAILY MONICA Administration Calcium Acetate 2,001 mg 01/18/21 08:00 01/20/21 08:56 Calcium Acetate 667 Mg Tablet PO 2,001 mg TIDWM MONICA Administration Carvedilol 25 mg 01/18/21 08:0
--- NOTE | 2021-01-20 13:43 | PM.PNCARD ---
Progress Note: A&P Assessment and Plan (1) Elevated troponin: Code(s): R77.8 - Other specified abnormalities of plasma proteins Status: Acute Assessment and Plan: Indeterminate troponin elevation fairly flat with slight downward trend setting of reported hypertensive urgency systolic up to BP 250 mm Hg during hemodialysis resulting in supply demand mismatch in the setting of end-stage renal disease hemodialysis, atrial fibrillation, underlying CAD. No symptoms suggestive acute coronary syndrome. Troponin elevation most likely type 2 infarct and not related to plaque rupture. No further invasive workup planned at this time. Follow up with her certified residential medication aide Dr. Logan as an outpatient within the next 2 weeks for further evaluation of tricuspid regurgitation noted on echocardiogram. LV systolic function preserved moderate LVH. Disposition per hospitalist service. Stable from cardiac perspective. 2D echocardiogram personally reviewed: Summary 1. Complete two-dimensional, color flow and Doppler transthoracic echocardiogram is performed. 2. Right ventricular systolic function is mild to moderately reduced. 3. Left ventricular chamber dimension is normal. 4. Left ventricular systolic function is normal, estimated at 65-70%. 5. There is moderately increased left ventricular wall thickness. 6. Left ventricular septal wall motion is abnormal with septal motion related to bundle branch block. 7. There is moderate to severe tricuspid valve regurgitation. 8. Moderate pulmonary hypertension, estimated pulmonary arterial systolic pressure is 47 mmHg. (2) Atrial fibrillation: Code(s): I48.91 - Unspecified atrial fibrillation Status: Chronic Assessment and Plan: Heart rate reasonably controlled. Patient reports known chronic history of atrial fibrillation. She is not on systemic anticoagulation due to history of frequent falls, reported bleeding. She remains on clopidogrel. Heart rate reasonably controlled at this time, continue carvedilol 25 mg twice daily. Patient elevated risk for embolic stroke as she is not on systemic anticoagulation with multiple risk factors CHADS2 Vasc score at least 5. (3) CAD (coronary artery disease): Code(s): I25.10 - Atherosclerotic heart disease of [place] coronary artery without angina pectoris Status: Chronic Assessment and Plan: Prior history of bypass followed by Dr. Logan [facility] as an outpatient. Please request prior records for review. Continue clopidogrel, statin therapy. (4) Hypertensive urgency: Code(s): I16.0 - Hypertensive urgency Status: Acute Assessment and Plan: BP improved, somewhat labile and relatively hypotensive over the past 24 hours. Caution to avoid symptomatic hypotension. Patient is high fall risk. Defer resumption of losartan to Nephrology and primary service. (5) COPD (chronic obstructive pulmonary disease): Code(s): J44.9 - Chronic obstructive pulmonary disease, unspecified Status: Chronic Assessment and Plan: Continue oxygen supplementation, bronchodilator therapy as clinically appropriate. Defer to primary service in this regard. (6) Anemia of chronic disease: Code(s): D63.8 - Anemia in other chronic diseases classified elsewhere Status: Chronic Assessment and Plan: Stable chronic anemia and thrombocytopenia. Monitor very closely on clopidogrel. Increased risk of bleeding. (7) Acute hyperkalemia: Code(s): E87.5 - Hyperkalemia Status: Acute Assessment and Plan: Resolved. Defer to primary service and Nephrology. (8) End stage renal disease on dialysis: Code(s): N18.6 - End stage renal disease; Z99.2 - Dependence on renal dialysis Status: Acute Assessment and Plan: Hemodialysis per Nephrology. Subjective Date/time seen: Date of service: 01/20/21 13:43 Follow-up for chronic atrial fibrillation, CAD, elevated troponin,
[2021-01-20] MEDS: IPRATROPIUM BR 0.02% INH SOLN 0.5 MG/2.5 ML VIAL INHALATION (14:08)
[2021-01-20] MEDS: ALBUTEROL SULFATE NEB 2.5 MG/0.5 ML INH INHALATION (14:08)
--- NOTE | 2021-01-20 15:25 | PM.DS ---
DS: Admitting Diagnosis Discharge Date 01/20/21 Admitting Diagnosis Elevated BP DS: Discharge Diagnosis Discharge Diagnosis (1) Hypertensive urgency: Code(s): I16.0 - Hypertensive urgency Status: Acute Assessment and Plan: The patient is an 85-year-old woman who was at [facility], with a history of end-stage renal disease on dialysis, who presents emergency room with uncontrolled blood pressure while at dialysis. The patient states sometimes her blood pressure becomes out of control while doing dialysis. Prior to arrival was as high as 250/120 and she was brought to the emergency room for further evaluation and workup. Initial vitals showed elevated blood pressure 137/95, tachycardic heart rate 107 beats per minute, normal oxygenation on 2 L via nasal cannula which is her baseline, afebrile. Labs on arrival showed normal white blood cell count, macrocytic anemia with a hemoglobin at 10.2, hematocrit 32%. Slight hyponatremia at 134, hyperkalemia at 5.1, elevated creatinine at 5.1, BUN 51 but she is on dialysis. Troponins were elevated at 0.85, 0.768, and 0.701. TSH normal. Patient was admitted into the hospital for further monitoring of her blood pressure, nephrology consult for dialysis, and cardiology consultation for troponin and blood pressure control. While here the patient's blood pressure seems to be running normal-slightly hypotensive. I have not seen any more hypertensive episodes during her admission. She otherwise reports feeling well. Patients blood pressures are improved today 130/44. Nephrology evaluated the patient and she had dialysis 01/18, 01/19. She will return to her normal scheduled Monday as an outpatient. Renal function and electrolytes are improved from dialysis. Echocardiogram showed Right ventricular systolic function is mild to moderately reduced. Left ventricular chamber dimension is normal. Left ventricular systolic function is normal, estimated at 65-70%. There is moderately increased left ventricular wall thickness. Moderate pulmonary HTN and Moderate to Severe Tricuspid Valve Regurg that will need follow up with PCP. Patient is feeling well at this time without any concerns. She is stable for discharge back to her living facility and follow up with PCP in 1 week. She understands and agrees with the plan. All questions answered. (2) Elevated troponin: Code(s): R77.8 - Other specified abnormalities of plasma proteins Status: Acute Assessment and Plan: Cardiology evaluated the patient who believes that her elevated troponins are secondary to a tight to infarct which could be in the setting of hypertensive urgency systolic up to BP 250 mm Hg during hemodialysis resulting in supply demand mismatch in the setting of end-stage renal disease hemodialysis, atrial fibrillation, underlying CAD. Cardiology discussed with the patient who does not want further invasive testing done such as a cardiac catheterization (3) End stage renal disease on dialysis: Code(s): N18.6 - End stage renal disease; Z99.2 - Dependence on renal dialysis Status: Acute Assessment and Plan: Continue dialysis. (4) COPD (chronic obstructive pulmonary disease): Code(s): J44.9 - Chronic obstructive pulmonary disease, unspecified Status: Chronic Assessment and Plan: Continue with home medications. She had slight SOB when I evaluated her and she stated she was sitting up to high in bed, once we lowered her bed down she felt better. Also gave her a breathing treatment and she was much better and feels comfortable with discharge at this time. Otherwise lungs were clear without any wheezing. (5) Atrial fibrillation: Code(s): I48.91 - Unspecified atrial fibrillation
== END 2021-01-20 16:30 | DRG 280 ==
LOC: ANHED 17:53 → ANHIMU 21:57
PROVIDERS: Internal Medicine Nephrology; Nurse Practitioner; Admitting Provider Family Medicine; Emergency Provider Emergency Medicine; PCP Internal Medicine; Visit Provider Physician Assistant
DX: I16.0 Hypertensive urgency (principal); N18.6 End stage renal disease; I21.A1 Myocardial infarction type 2; I48.20 Chronic atrial fibrillation, unspecified; E87.1 Hypo-osmolality and hyponatremia; I12.0 Hypertensive chronic kidney disease with stage 5 chronic kidney disease or end stage renal disease; E87.5 Hyperkalemia; J44.9 Chronic obstructive pulmonary disease, unspecified; D63.1 Anemia in chronic kidney disease; I25.10 Atherosclerotic heart disease of native coronary artery without angina pectoris; E03.9 Hypothyroidism, unspecified; E53.8 Deficiency of other specified B group vitamins; Z66 Do not resuscitate; Z99.2 Dependence on renal dialysis; Z87.442 Personal history of urinary calculi; Z95.1 Presence of aortocoronary bypass graft; Z90.710 Acquired absence of both cervix and uterus; Z99.81 Dependence on supplemental oxygen
CPT/HCPCS: 36415; 70450; 71045; 80048; 80053; 80069; 82607; 82728; 82746; 83540; 83550; 83615; 83735; 84100; 84443; 84484; 85025; 85027; 93005; 93306; 96374; 97161; 97165; 99285; A9270; G0257; G0378; J1644; J3420; J7030; P9047

== ENCOUNTER 2021-03-23 18:19 | Emergency (ER) | payer OTHER, SELFPAY ==
[2021-03-23] VITALS (14 sets, daily range): BP systolic 43–107; BP diastolic 17–57; PULSE 0–117; RESP 0–24; TEMP 36.4; O2SAT 0–98
--- NOTE | 2021-03-23 19:00 | PC.NURSE ---
Assuming care of pt.
[2021-03-23 19:05] LABS: INR 1.6; Prothrombin Time 18.6 Seconds (11.1-14.7)
--- NOTE | 2021-03-23 20:06 | ED.GENADULT ---
HPI - General Adult General Chief complaint: GI Bleed Stated complaint: vomiting blood Time Seen by Provider: 03/23/21 19:57 Source: patient, family and RN notes reviewed History of Present Illness HPI narrative: 86-year-old female that is [place] presents to the emergency department for evaluation of a GI bleed. detention states that the GI bleed started at 5:30 in the afternoon. Patient was alert upon arrival to the emergency department and states that she understands if she does not get blood products she will . I discussed the case with the daughter. The daughter confirmed that she wants comfort care for the patient. Patient is DNI DNR, the daughter does not want medications to help elevate the blood pressure, the daughter does not want any blood products and the daughter does not want any surgical procedures. I discussed that we would be able to provide medications for pain control and anxiety along with some IV fluids. Daughter was comfortable with this plan. Related Data Home Medications Medication Instructions Recorded Confirmed atorvastatin 40 mg PO HS 01/17/21 01/17/21 buspirone 10 mg PO DAILY 01/17/21 01/17/21 calcium acetate(phosphat bind) 3 mg PO TIDWM 01/17/21 01/17/21 carvedilol 25 mg PO BID 01/17/21 01/17/21 clopidogrel 75 mg PO DAILY 01/17/21 01/17/21 fentanyl See Rx Instructions .ROUTE .COMPLEX 01/17/21 01/17/21 gabapentin 300 mg PO TID 01/17/21 01/17/21 losartan 25 mg PO TUTHSA 01/17/21 01/20/21 metolazone 10 mg PO DAILY 01/17/21 01/17/21 oxycodone 10 mg PO TID 01/17/21 01/17/21 Allergies Allergy/AdvReac Type Severity Reaction Status Date / Time MARIANO Inhibitors Allergy Unknown Unknown Verified 03/23/21 18:29 Iodinated Contrast Media Allergy Unknown Unknown Verified 03/23/21 20:04 Penicillins Allergy Unknown Unknown Verified 03/23/21 18:29 Sulfa (Sulfonamide Allergy Unknown Unknown Verified 03/23/21 18:29 Antibiotics) Contrast Media Allergy Unknown Unknown Uncoded 03/23/21 18:29 Review of Systems Review of Systems: CONSTITUTIONAL: Denies fever, chills, or sweats. EYES: Denies visual changes, redness, or discharge. ENT: Denies rhinorrhea, congestion, sore throat, or otalgia. CARDIOVASCULAR: Denies chest pain, palpitations, or edema. RESPIRATORY: Denies cough or dyspnea. GASTROINTESTINAL: melena GI bleed GENITOURINARY: Denies dysuria or hematuria. SKIN: Denies rash or itching. MUSCULOSKELETAL: Denies back pain, joint pain, or myalgia. NEUROLOGIC: Denies headache, numbness, or weakness. PSYCHIATRIC: Denies anxiety or depression. All systems reviewed & are unremarkable except as noted in HPI and below [facility] Past Medical History Medical History Anemia of chronic disease Atrial fibrillation CAD (coronary artery disease) COPD (chronic obstructive pulmonary disease) History of kidney stones Hypothyroidism Surgical History Surgical History H/O four vessel coronary artery bypass graft H/O lithotripsy H/O: hysterectomy Family History Family History Mother Hypertension Diabetes mellitus Sibling Heart disease Sister Diabetes mellitus 1 brother and 2 sisters Hypertension 3 brothers and 2 sisters Father Hypertension Social History Social History Social History: The patient was the homemaker. She is . She had 8 children. She is a former smoker she quit over 21 years ago. The patient used to live in [place] but for the last year she has been living at [facility]. The patient had 8 children. She is . Code status DNR. Smoking status: Former smoker Tobacco type: cigarettes Alcohol intake: never Substance use: never Substance use type: does not use Spiritual care concerns: No
[2021-03-23] MEDS: SODIUM CHLORIDE 0.9% IV 1,000 ML 999 ML IV CONT (20:27)
[2021-03-23] MEDS: PANTOPRAZOLE SODIUM IV 40 MG VIAL 80 MG IV PUSH (20:27)
--- NOTE | 2021-03-23 20:55 | PC.NURSE ---
Per MD no longer need blood draw.
== END 2021-03-23 23:15 | disposition expired ==
LOC: ANHED 21:23
PROVIDERS: Emergency Medicine; Emergency Provider Emergency Medicine; PCP Internal Medicine
DX: K92.2 Gastrointestinal hemorrhage, unspecified (principal); D63.8 Anemia in other chronic diseases classified elsewhere; I48.91 Unspecified atrial fibrillation; I25.10 Atherosclerotic heart disease of native coronary artery without angina pectoris; J44.9 Chronic obstructive pulmonary disease, unspecified; E03.9 Hypothyroidism, unspecified; Z87.442 Personal history of urinary calculi; Z95.1 Presence of aortocoronary bypass graft; Z87.891 Personal history of nicotine dependence; Z66 Do not resuscitate
CPT/HCPCS: 36415; 85610; 85730; 86850; 86900; 86901; 96361; 96374; 99284; C9113; J7030